=== PATIENT | female | born 1970 | race Caucasian/White ===

== ENCOUNTER → 2023-12-03 08:14 | Outpatient (REF) | payer BC, SELFPAY | LOC: HWWDC 08:14 | PROVIDERS: ATTENDING PHYSICIAN Family Medicine; REFERRING PHYSICIAN Obstetrics & Gynecology Gynecology | DX: Z12.31 Encounter for screening mammogram for malignant neoplasm of breast (principal) | CPT/HCPCS: 77063; 77067 ==

== ENCOUNTER 2023-12-13 17:52 | Emergency (ER) | payer BC, SELFPAY ==
[2023-12-13 18:01] VITALS: BP 169/109
[2023-12-13 18:21] LABS: % Basophils 0.7 % (0-2); % Eosinophils 1.2 % (0-6); % Immature Granulocytes 0.2 % (0-0.5); % Lymphocytes 20.3 % (20.5-51.1); % Monocytes 6.6 % (1.7-9.3); Absolute Basophils 0.1 10^3/uL (0-0.2); Absolute Eosinophils 0.1 10^3/uL (0-0.7); Absolute Lymphocytes 1.8 10^3/uL (1.2-3.4); Absolute Monocytes 0.6 10^3/uL (0.1-0.6); Absolute Neutrophils 6.1 10^3/uL (1.4-6.5); Hematocrit 35.9 % (37.0-47.0); Hemoglobin 12.9 g/dL (12.0-16.0); Mean Corp Hgb Conc. 35.9 g/dL (33.0-37.0); Mean Corpuscular Hgb 29.5 pg (27.0-31.0); Mean Corpuscular Volume 82.2 fL (81.0-99.0); Mean Platelet Volume 9.7 fL (7.4-10.4); Nucleated Red Blood Cells % 0 %; Platelet Count 280 10^3/uL (130-400); Red Blood Cell Count 4.37 10^6/uL (4.20-5.40); Red Cell Dist. Width 12.4 % (11.5-14.5); White Blood Cell Count 8.7 10^3/uL (4.8-10.8)
[2023-12-13 18:36] LABS: ALT (SGPT) 25 U/L (0-35); AST (SGOT) 30 U/L (14-36); Albumin 4.6 g/dl (3.5-5.0); Alkaline Phosphatase 100 U/L (38-126); Blood Urea Nitrogen 12 mg/dl (7-17); Calcium 9.6 mg/dl (8.4-10.2); Carbon Dioxide 26 mmol/L (22-30); Chloride 100 mmol/L (98-107); Glucose 105 mg/dl (70-99); Potassium 3.9 mmol/L (3.5-5.1); Sodium 134 mmol/L (135-145); Total Bilirubin 0.4 mg/dl (0.2-1.3); Total Protein 7.3 g/dl (6.3-8.2); eGFR > 60.00
[2023-12-13 19:28] VITALS: BP 168/97
[2023-12-13 19:29] VITALS: BP 168/97
--- NOTE | 2023-12-13 19:41 | ED.GENMED ---
History of Present Illness
General
Chief Complaint: Blood Pressure Problem
Source: patient
Exam Limitations: none
Time Seen by Provider: 12/13/23 18:55
Nursing documentation reviewed up to this point in time: agreed with
History of Present Illness
History of Present Illness:
Patient is a 53-year-old female who presents to the ER for evaluation of elevated blood pressure. Patient reports that early yesterday morning around 4 AM she woke up with a headache and took her blood pressure and it was elevated. Since that her
blood pressure has remained elevated. She did take 2 doses of her medicines valsartan hydrochlorothiazide combination yesterday but 1 dose today. She does still have a headache but the headache is not as bad. She was nauseous with a headache.
She denies any chest pain shortness of breath visual change.
She denies any [id number]-[id number] new medications that she does admit to having soy sauce recently and is aware that is high in sodium.
Review of Systems
Review of Systems
Allergies reviewed?: Yes
All Other Systems: ROS reviewed and negative except as documented in HPI and ROS
Constitutional: Reports no symptoms
Respiratory: Reports no symptoms
Cardiac: Reports no symptoms; Denies chest pain or palpitations
ABD/GI: Reports abdominal pain and nausea; Denies vomiting
: Reports no symptoms
Musculoskeletal: Reports no symptoms
Skin: Reports no symptoms
Neurological: Reports headache; Denies dizzy or numbness
Hematologic/Lymphatic: Reports no symptoms
Psychiatric: Reports no symptoms
Phy Exam
General Physical Exam
General Presentation: no apparent distress
General age: appears stated age
General Skin: warm and dry
General Habitus: normal
General Mental: alert
Neurological Exam
Neurological Exam: alert, oriented x3, no motor deficits, no sensory deficits and speech normal
Allan Coma Scale
Eye Opening: Spontaneous
Verbal Response: Oriented
Motor Response: Obeys Commands
GCS Total Score: 15
Cerebellar
Cerebellar Function: normal finger to nose
Musculoskeletal Exam
Musculoskeletal Exam: full ROM
Skin Exam
Skin Exam: normal color and warm/dry
Psychiatric Exam
Psychiatric Exam: normal mood/affect
Course
Orders/Labs/Results
Orders:
Orders
12/13/23 18:05
Electrocardiogram (*1) Urgent
Reason for Study: Hypertension, Benign
EKG- Treatment ONCE
12/13/23 18:13
Complete Blood Count/With Diff Urgent
12/13/23 18:14
CMP [Comprehensive Metabolic Panel] Urgent
12/13/23 19:49
CT Head W/o Iv Contrast Urgent
Comment:
Reason For Exam: headache /high bp
Abnormal Lab Results
12/13/23 12/13/23
18:13 18:14
Hct 35.9 L %
(37.0-47.0)
Lymphocytes % 20.3 L %
(20.5-51.1)
Sodium 134 L mmol/L
(135-145)
Glucose 105 H mg/dl
(70-99)
12/13/23 18:13
12/13/23 18:14
Vital Signs
Initial and Last Documented VS:
Initial Vital Signs
Temp Pulse Resp BP Pulse Ox
98.2 F 95 16 169/109 97
12/13/23 18:01 12/13/23 18:01 12/13/23 18:01 12/13/23 18:01 12/13/23 18:01
Last Documented Vital Signs
Temp Pulse Resp BP Pulse Ox
98.2 F 72 14 158/88 98
12/13/23 18:01 12/13/23 20:18 12/13/23 20:18 12/13/23 20:18 12/13/23 20:18
MDM/Problems Addressed
Differential Diagnosis Includes:
Not limited to headache elevated blood pressure less likely subarachnoid hemorrhage
MDM/Problems Addressed:
Patient presented with elevated blood pressure the past several days she has been taking her medication denies new [id number] medications but admitted to using soy sauce recently which is high in sodium. She did complain of headache however
presented no acute distress with a normal neurologic exam CT head negative. Normal kidney function no acute findings on EKG. Patient's blood pressure around 150s over 90s. Her headache is gone. She is anxious over her elevated blood pressure but
I did review with patient that is important to follow-up with a family doctor for further evaluation avoiding any extra salt to her foods and follow low-sodium diet reading labels continue to take her medicine and return if any worsening of symptoms.
*Radiology
Radiology exam reviewed: radiology read reviewed
*Pulse Oximetry
Patient hypoxic: no
*EKG
Interpreted by ED Provider?: Yes
Interpretation: normal
Comparison EKG: no comparison EKG present
Heart Rate: 84
Rate: normal
Rhythm: sinus
Ischemia: no ischemia
*Critical Care Note
Total Time (30-74mins, 75-104mins- exclusive of procedures): Not Applicable
ED Attending Note
-
Portions of this chart may have been created with voice recognition software.� Occasional wrong word or��sound alike� substitutions may have occurred due to the inherent limitations of voice recognition software.
Discharge Plan
Departure
Patient Disposition: Home (Routine Discharge)
Date of Disposition: 12/13/23
Time of Disposition: 22:09
Patient with high blood pressure during this ER visit?: Yes
Covid-19: Not Applicable
Discharge Problem:
elevated blood pressure, Headache
Instructions: High Blood Pressure (DC), Headache, Adult ED, BLOOD PRESSURE
Referrals:
Saúl Reyes MD [Family Provider] -
Activity Restrictions/Additional Instructions:
As discussed continue to take your blood pressure medication as previously prescribed.
follow a low-salt diet do not add any salt to your foods and read all labels. Stay well-hydrated. Call your family doctor tomorrow to make an appointment extremities for reevaluation of your blood pressure return if any worsening of symptoms.
Interventions
Interventions:
*Risk Screen - Suicide Last Done: 12/13/23 19:30
*General Assessment Last Done: 12/13/23 19:28
*Neglect/Abuse Screening Last Done: 12/13/23 19:28
*ED COVID-19 Vaccine History Last Done: 12/13/23 19:28
ED- Cardiac Assessment Last Done: 12/13/23 19:32
ED- Neurological Assessment Last Done: 12/13/23 19:32
Discharge Date and Time
Print Language: SWISS
[2023-12-13 19:55] VITALS: BP 153/84
[2023-12-13 20:18] VITALS: BP 158/88
[2023-12-13 21:00] VITALS: BP 152/92
== END 2023-12-13 22:40 | disposition home or self-care (01) ==
LOC: EMR 17:52
PROVIDERS: EMERGENCY PHYSICIAN Emergency Medicine; FAMILY PHYSICIAN Family Medicine
DX: R51.9 Headache, unspecified (principal); I10 Essential (primary) hypertension
CPT/HCPCS: 99285; 70450; 80053; 85025; 93005

== ENCOUNTER → 2024-06-02 07:43 | Outpatient (REF) | payer BC, SELFPAY | LOC: HWRAD 07:43 | PROVIDERS: ATTENDING PHYSICIAN Obstetrics & Gynecology Gynecology | DX: N95.0 Postmenopausal bleeding (principal) | CPT/HCPCS: 76830; 76856 ==

== ENCOUNTER 2024-07-21 06:19 | Day surgery (SDC) | payer BC, SELFPAY | END 2024-07-21 15:08 | disposition home or self-care (01) | LOC: GI 06:19 | PROVIDERS: ATTENDING PHYSICIAN Internal Medicine Gastroenterology | DX: Z12.11 Encounter for screening for malignant neoplasm of colon (principal); K64.8 Other hemorrhoids; Z86.0100 Personal history of colon polyps, unspecified | CPT/HCPCS: G0105 ==

== ENCOUNTER → 2024-10-06 13:18 | Outpatient (REF) | payer BC, SELFPAY | LOC: HWRAD 13:18 | DX: F17.210 Nicotine dependence, cigarettes, uncomplicated (principal) | CPT/HCPCS: 71271 ==

== ENCOUNTER → 2024-12-08 14:43 | Outpatient (REF) | payer BC, SELFPAY | LOC: HWWDC 14:43 | PROVIDERS: ATTENDING PHYSICIAN Obstetrics & Gynecology Gynecology | DX: Z12.31 Encounter for screening mammogram for malignant neoplasm of breast (principal) | CPT/HCPCS: 77063; 77067 ==

== ENCOUNTER → 2025-04-27 12:33 | Outpatient (REF) | payer BC, SELFPAY | LOC: HWRAD 12:33 | DX: R91.1 Solitary pulmonary nodule (principal) | CPT/HCPCS: 71250 ==

== ENCOUNTER → 2025-05-05 09:10 | Outpatient (REF) | payer BC, SELFPAY | LOC: HWRCS 09:10 | DX: I31.39 Other pericardial effusion (noninflammatory) (principal) | CPT/HCPCS: 93306 ==